=== PATIENT | male | born 2000 | race Caucasian/White ===

== ENCOUNTER 2021-07-20 21:43 | Emergency (ER) | payer OTHER, SELFPAY | END 2021-07-21 00:44 | disposition left against medical advice (07) | PROVIDERS: Emergency Provider Emergency Medicine | DX: R68.89 Other general symptoms and signs (principal) ==

== ENCOUNTER 2021-07-21 09:08 | Emergency (ER) | payer OTHER, SELFPAY ==
[2021-07-21 09:17] VITALS: BP 133/49; PULSE 64; RESP 19; TEMP 37.2; O2SAT 99; BMI 22.9
[2021-07-21 09:44] LABS: COVID-19 Test Negative (Negative); IDNOW Serial# 16C4AD1C; Influenza A Positive (Negative); Influenza B2 Negative (Negative)
--- NOTE | 2021-07-21 09:58 | ED.URI ---
HPI - URI/Sore Throat General Chief Complaint: Upper Respiratory Symptoms Stated Complaint: fever cough congestion Time Seen by Provider: 07/21/21 09:36 Source: patient Mode of arrival: ambulatory Limitations: no limitations History of Present Illness HPI Narrative: 20-year-old male history of childhood asthma presents to ED for 4 days of URI symptoms consisting of stuffy nose, body aches, fatigue, and coughing. Patient denies any chest pain or shortness of breath. Patient denies any possible COVID exposure. Patient is not vaccinated against COVID. Related Data Allergies Allergy/AdvReac Type Severity Reaction Status Date / Time No Known Allergies Allergy Unverified 11/24/19 18:41 Review of Systems Review of Systems: Body aches, nasal congestion, coughing, and fatigue Yes all other systems are reviewed and are negative [facility] Social History Social History Advance Directives: No Advance Directives Information Provided: No Physical Exam Vital Signs: Vital Signs: Last Vital Signs Temp 98.9 F 07/21/21 09:17 Pulse 64 07/21/21 09:17 Resp 19 07/21/21 09:17 BP 133/49 L 07/21/21 09:17 Pulse Ox 99 07/21/21 09:17 BMI result Body Mass Index 22.9 Const: General: cooperative, healthy appearing, comfortable, no acute distress, well developed, alert, awake and Physically active Orientation/consciousness: oriented to time and patient oriented x3 HEENT: Head: Yes normal to inspection, Yes No palpable skull fracture present, Yes normocephalic, Yes atraumatic and No abrasion Ears: hearing grossly normal bilaterally, external ears normal, TM's normal bilaterally, EAC's normal, mastoids normal and no periauricular adenopathy Eyes: General: appearance normal, both eyes and all related structures Neck: Neck: Yes normal visual inspection, Yes full ROM, Yes no lymphadenopathy, Yes no meningeal signs, Yes trachea midline, Yes supple, No anterior neck swelling and No tender Chest: Chest palpation & inspection: normal inspection of the chest and normal palpation of entire chest wall Resp: Effort & Inspection: normal respiratory effort and able to speak in complete sentences Auscultation: clear to auscultation bilaterally Cardio: Jugular venous distension: no JVD Heart sounds: S1 normal heart sound present and S2 normal heart sound present GI: Inspection: Yes normal to inspection Palpation (GI): Soft to palpation, not firm, nontender, no guarding and not rigid : General: No CVA tenderness and Yes no CVA tenderness Back/Spine/Pelvis: Back: no CVA tenderness, No CVA tenderness and No back tenderness Skin: General skin exam: no rashes or lesions noted and elasticity normal Neuro: General: oriented to time, patient oriented x3, gait normal, no meningeal signs and CN's II-XI intact bilaterally Cranial nerves: Yes CN's II-XII intact bilaterally Extrem: General: Yes normal to inspection and Yes full ROM Psych: Appearance: grossly normal, well kempt and not disheveled Course Course Course Narrative: COVID influenza swab ordered Reevaluation(s) Reevaluation #1: COVID influenza ordered. According to UpToDate indication for giving Tamiflu if symptoms onset has been less than 48 hours. Patient having symptoms for over 48 hours so he does not qualify for Tamiflu. Patient educated on oral hydration, rest, Motrin/Tylenol for pain relief. Time: 10:05 MDM - URI/Sore Throat MDM Narrative Medical decision making narrative: Influenza Lab Data Labs: Lab Results 07/21/21 07/21/21 Range/Units 09:22 09:22 COVID-19 (AMARILYS) Negative (Negative) COVID-19 Clin Com See Note Influenza Type A (MAURY) Positive A (Negative) Influenza Type B (MAURY) Negative (Negative) Influenza A & B Note See Note Discharge Plan Discharge Clinical Impression: Influenza Patient Disposition: Home, Self-Care Instructions: Influenza (ED) Additional Instructions: You came back positive for influenza. UA any days off to rest. Recommend oral hydration, brat diet ( Bananna, Rice, apple sauce, toast), and Tylenol/Motrin for pain/fever relief. Please follow-up with primary care provider. Return to the ED for any chest pain, shortness of breath, weakness, dizziness, leg swelling, calf pain, coughing up blood, or any other concerning symptoms. Stand Alone Forms: Work/School Release Interventions: ED Discharge Assessment Last Done: 07/21/21 10:16 Discharge Date/Time: 07/21/21 10:17
== END 2021-07-21 10:17 | disposition home or self-care (01) ==
PROVIDERS: Emergency Provider Emergency Medicine
DX: J11.1 Influenza due to unidentified influenza virus with other respiratory manifestations (principal); Z20.822 Contact with and (suspected) exposure to COVID-19
CPT/HCPCS: 87502; 87635; 99283

== ENCOUNTER 2022-07-17 22:19 | Emergency (ER) | payer OTHER, SELFPAY ==
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
--- NOTE | ~2022-07-17 | XR_ITS ---
EXAMINATION: XR HAND, RIGHT CLINICAL INFORMATION: Rule out boxer's fracture COMPARISON: None available. TECHNIQUE: PA, lateral, and oblique views of the right hand. FINDINGS: Osseous alignment is anatomic. No acute fracture is seen. There is mild soft tissue swelling adjacent to the fifth metacarpal. XR/XR hand RT 2V IMPRESSION: Mild soft tissue swelling adjacent to the fifth metacarpal. No fracture identified.
[2022-07-17 22:26] VITALS: BP 113/43; BP 126/66; PULSE 111; PULSE 124; RESP 19; TEMP 37.2; O2SAT 96; O2SAT 98; BMI 20.1
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
[2022-07-17 22:57] VITALS: BP 126/57; PULSE 96; RESP 17; O2SAT 99
--- NOTE | 2022-07-17 23:10 | PC.NURSE ---
vss calm/cooperative no apparent distress xray pending
[2022-07-18 00:02] VITALS: BP 116/62; PULSE 75; RESP 20; TEMP 36.9; O2SAT 97
== END 2022-07-18 00:13 | disposition home or self-care (01) ==
PROVIDERS: Emergency Provider Emergency Medicine
DX: S60.221A Contusion of right hand, initial encounter (principal); S00.81XA Abrasion of other part of head, initial encounter; Y04.2XXA Assault by strike against or bumped into by another person, initial encounter; F12.90 Cannabis use, unspecified, uncomplicated; Y93.9 Activity, unspecified; Y92.017 Garden or yard in single-family (private) house as the place of occurrence of the external cause; Y99.9 Unspecified external cause status
CPT/HCPCS: 70450; 73120; 99284

== ENCOUNTER 2022-10-29 05:06 | Outpatient (REF) | payer OTHER, SELFPAY ==
--- NOTE | ~2022-10-29 | XR_ITS ---
EXAMINATION: XR HAND, RIGHT CLINICAL INFORMATION: Pain in right hand COMPARISON: 07/18/2019 TECHNIQUE: PA, lateral, and oblique views of the right hand. FINDINGS: There is new fracture through the distal metadiaphysis of fifth metacarpal bone with minimal angulation of fragments and overlapping thin consistent with the appearance of boxer's fracture. There is soft tissue edema surrounding fracture. XR/XR hand RT min 3V IMPRESSION: Boxer's fracture of the fifth metacarpal bone on the right
== END 2022-10-29 05:07 | disposition home or self-care (01) ==
LOC: HO.HOSX 05:06
PROVIDERS: Visit Provider Physician Assistant
DX: S62.336A Displaced fracture of neck of fifth metacarpal bone, right hand, initial encounter for closed fracture (principal); X58.XXXA Exposure to other specified factors, initial encounter; Y93.9 Activity, unspecified; Y92.9 Unspecified place or not applicable; Y99.9 Unspecified external cause status
CPT/HCPCS: 26600; 73130

== ENCOUNTER 2022-10-29 13:15 | Outpatient (AMB) | payer OTHER, SELFPAY ==
[2022-10-29 13:39] VITALS: BMI 20.1
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
== END 2022-10-29 14:20 | disposition home or self-care (01) ==
PROVIDERS: Visit Provider Orthopaedic Surgery
DX: S62.336A Displaced fracture of neck of fifth metacarpal bone, right hand, initial encounter for closed fracture (principal)
CPT/HCPCS: 99203

== ENCOUNTER 2022-11-26 11:31 | Outpatient (REF) | payer OTHER, SELFPAY | END 2022-11-26 11:32 | disposition home or self-care (01) | LOC: HO.HOSX 11:31 | PROVIDERS: Visit Provider Orthopaedic Surgery | DX: Z13.89 Encounter for screening for other disorder (principal) ==